=== PATIENT | female | born 1985 | race Two or more races ===

== ENCOUNTER 2017-12-25 23:18 | Emergency (ER) | payer OTHER ==
[~2017-12-25] VITALS: Ht 154.9 cm; Wt 51.7 kg
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
[2017-12-26 02:13] VITALS: BP 100/58
[2017-12-26 02:15] VITALS: BP 100/56
--- NOTE | 2017-12-26 09:00 | Diagnostic Imaging Report ---
Indication: Left hand pain Technique: Left hand 3 views Comparison: None Findings: There is no acute fracture or dislocation. Mild soft tissue swelling of the dorsal hand is noted. Bone mineralization is normal. Impression: No acute osseous normality. Mild dorsal soft tissue swelling.
== END 2017-12-26 02:10 | disposition home or self-care (01) ==
LOC: EDBD 23:18 → EMR 23:25
DX: S60.222A Contusion of left hand, initial encounter (principal); V43.52XA Car driver injured in collision with other type car in traffic accident, initial encounter; Y92.410 Unspecified street and highway as the place of occurrence of the external cause
CPT/HCPCS: 99283